=== PATIENT | male | born 1995 | race Hispanic/Latino ===

== ENCOUNTER 2023-11-07 01:16 | Emergency (ER) | payer OTHER ==
[~2023-11-07] VITALS: Ht 175.3 cm; Wt 85.7 kg
[2023-11-07 02:32] LABS: ADD UA MICROSCOPIC NO; APPEARANCE,URINE CLEAR (CLEAR); BILIRUBIN,URINE NEGATIVE (NEGATIVE); COLOR,URINE COLORLESS (YELLOW); GLUCOSE, URINE (UA) NEGATIVE (NEGATIVE); KETONES,URINE NEGATIVE (NEGATIVE); LEUKOCYTE ESTERASE ,URINE NEGATIVE Leu/uL (NEGATIVE); NITRATE,URINE NEGATIVE (NEGATIVE); OCCULT BLOOD,URINE NEGATIVE (NEGATIVE); PH,URINE 6.5 (5.0-8.0); PROTEIN,URINE NEGATIVE (NEGATIVE); UROBILINOGEN,URINE 0.2 mg/dL (0.2-1.0)
[2023-11-07 03:48] VITALS: BP 118/65; PULSE 66; RESP 18; O2SAT 99
== END 2023-11-07 04:32 ==
LOC: EDH 01:16
DX: R33.9 Retention of urine, unspecified (principal)
CPT/HCPCS: 81003